=== PATIENT | male | born 1950 | race Caucasian/White ===

== ENCOUNTER 2017-09-04 15:31 | Emergency (ER) | payer OTHER ==
[~2017-09-04 15:31] MED LIST: ALPR.25 PO; AMBI5TAB PO; LACTTAB8 PO; LOSA25TA PO; METO1TAB43 PO; MOBI7.5T PO; OMEP20TA93 PO; TRAM50TA PO
[2017-09-04 16:48] VITALS: BP 115/68; PULSE 85; RESP 22; TEMP 99; O2SAT 96
[2017-09-04 19:11] VITALS: PULSE 84; RESP 20; O2SAT 96
[2017-09-04] MEDS ORDERED: METO1TAB43 PO (19:16)
[2017-09-04 19:20] VITALS: BP 114/77; PULSE 88; RESP 20; O2SAT 98
--- NOTE | 2017-09-04 19:23 | PD ---
HPI Chief Complaint: Cold / Flu Symptoms Time Seen by Provider: 19:03 Travel History International Travel<30 days: No Contact w/Intl Traveler<30days: No Traveled to known affect area: No History of Present Illness HPI Patient is a 67-year-old male coming in saying since Saturday which is 5 days ago sore throat congested upper airway felt his throat may be closing and then he's had a cough shortness of breath wakes up feeling short of breath however he reports he has anxiety so is not sure whether it is airway is the problem or his having anxiety while sleeping. He is on losartan and metoprolol for cardiac arrhythmia. He is not complaining of chest pain he is not complaining of nausea vomiting diarrhea negative patient's main complaint is coughing sore throat feeling weak and chills and short of breath. He has taken Mucinex over- the-counter without relief of his symptoms. He has a history of COPD however he is not on home nebs he is not on prednisone and he has not seen another doctor for this. [facility]. 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) Cardiovascular Problems: Yes (HTN, IRREGULAR HEART RATE) High Cholesterol: Yes COPD: Yes Diabetes: No GERD: Yes Hypertension: Yes Psychiatric: Yes (PTSD) Tetanus Vaccination: < 5 Years Influenza Vaccination: Yes PNEUMOCCOCAL Vaccine (Year): 2009 Past Surgical History Abdominal Surgery: Yes (HERNIA REPAIR) Eye Surgery: Yes (lasix) Other Surgery: Yes (SKIN CANCER REMOVAL FROM NOSE) Family History Family Myocardial Infarction: Yes Social History Alcohol Use: Yes Tobacco Use: No (quit 16 years ago) Substance Use: No Allergies-Medications (Allergen,Severity, Reaction): Coded Allergies: clindamycin (Unverified Allergy, Severe, EDEMA, 09/04/17) Reported Meds & Prescriptions Reported Meds & Active Scripts Active Levaquin (Levofloxacin) 750 Mg Tablet 750 Mg PO DAILY Atrovent HFA 12.9 GM Inh (Ipratropium [place]) 17 Mcg/Actuation Aer 2 Puff INH Q6HR PRN Guaifenesin AC Liq (Guaifenesin-Codeine Liq) 100-10 Mg/5 Ml Syrp 10 Ml PO Q4H PRN Reported Metoprolol Succinate ER 24 HR (Metoprolol Succinate) 100 Mg Tab 150 Mg PO DAILY Ambien (Zolpidem Tartrate) 5 Mg Tab 5 Mg PO HS PRN Xanax (Alprazolam) 0.25 Mg Tab 0.25 Mg PO Q8H PRN Mobic (Meloxicam) 7.5 Mg Tab 7.5 Mg PO DAILY Tramadol (Tramadol HCl) 50 Mg Tab 50 Mg PO Q8H PRN Omeprazole 20 Mg Tab 20 Mg PO DAILY Lactobacillus Acidophilus 1 Tab Tab 1 Tab PO BID Losartan (Losartan Potassium) 25 Mg Tab 25 Mg PO DAILY Review of Systems Except as stated in HPI: all other systems reviewed are Neg Physical Exam Narrative GENERAL: Awake alert nontoxic appearing no respiratory distress SKIN: Warm and dry. HEAD: Atraumatic. Normocephalic. EYES: Pupils equal and round. No scleral icterus. No injection or drainage. ENT: No nasal bleeding or discharge. Mucous membranes pink and moist. Posterior pharynx erythema but no exudate NECK: Trachea midline. No JVD. No submandibular node swelling no lymphadenopathy CARDIOVASCULAR: Regular rate and rhythm. RESPIRATORY: No accessory muscle use. Clear to auscultation. Breath sounds equal bilaterally. Lungs completely clear to auscultation in all arango GASTROINTESTINAL: Abdomen soft, non-tender, nondistended. Hepatic and splenic margins not palpable. MUSCULOSKELETAL: Extremities without clubbing, cyanosis, or edema. No obvious deformities. NEUROLOGICAL: Awake and alert. No obvious cranial nerve deficits. Motor grossly within normal limits. Five out of 5 muscle strength in the arms and legs. Normal speech. PSYCHIATRIC: Appropriate mood and affect; insight and judgment normal. Data Data Last Documented VS Vital Signs Date Time Temp Pulse Resp B/P (MAP) Pulse Ox O2 Delivery O2 Flow Rate FiO2 09/04/17 21:35 78 18 120/78 (92) 97 09/04/17 19:20 Room Air 09/04/17 16:48 99.0 Orders Orders Group A Rapid Strep Screen (09/04/17 19:17) Influenzae A/B Antigen (09/04/17 19:17) Chest, Pa & Lat (09/04/17 ) Ibuprofen (Motrin) (09/04/17 19:30) Guaifen-Cod 200-20 Mg/10ml Liq (Robituss (09/04/17 19:30) Ipratropium Neb (Atrovent Neb) (09/04/17 19:30) Strep Culture (Group A) (09/04/17 19:21) Ed Discharge Order (09/04/17 20:36) [facility] Medical Decision Making Medical Screen Exam Complete: Yes Emergency Medical Condition: Yes Differential Diagnosis Viral illness versus influenza versus strep pharyngitis versus other reactive airway versus allergy versus COPD exacerbation Narrative Course Chest x-ray is negative strep and flu swabs are sent and negative patient is treated with an Atrovent as well as cough syrup and a ibuprofen. Dx COPD levaquin PO and Atrovent and cough syrup with codeine 120 ml Diagnosis Primary Impression: Cough Additional Impression: COPD exacerbation Patient Instructions: Acute Cough (ED), COPD (Chronic Obstructive Pulmonary Disease) (ED), General Instructions Scripts Levofloxacin (Levaquin) 750 Mg Tablet 750 MG PO DAILY for Infection, #5 TAB 0 Refills Prov: Ron Grimaldo MD 09/04/17 Ipratropium HFA 12.9 GM Inh (Atrovent HFA 12.9 GM Inh) 17 Mcg/Actuation Aer 2 PUFF INH Q6HR Y for SHORTNESS OF BREATH, #1 INHALER 0 Refills Prov: Ron Grimaldo MD 09/04/17 Guaifenesin-Codeine Liq (Guaifenesin AC Liq) 100-10 Mg/5 Ml Syrp 10 ML PO Q4H Y for COUGH, #1 BOTTLE 0 Refills Prov: Ron Grimaldo MD 09/04/17 Ron Grimaldo MD Sep 04, 2017 19:23
[2017-09-04] MEDS ORDERED: RESP: IPRATROPIUM 0.5 MG/2.5 ML NEB NEB ONE (19:30)
[2017-09-04] MEDS ORDERED: IBUPROFEN 600 MG TAB PO ONE (19:30)
[2017-09-04] MEDS ORDERED: guaiFENesin/CODEINE SYRUP 200 MG/20 MG/10 ML CUP PO ONE (19:30)
--- NOTE | 2017-09-04 19:39 | RADRPT ---
EXAM DATE/TIME: 09/04/2017 19:21 [place] COMPARISON: No previous studies available for comparison. INDICATIONS : Chest pain and cough. MEDICAL HISTORY : None. SURGICAL HISTORY : None. ENCOUNTER: Initial ACUITY: 1 day PAIN SCORE: 4/10 LOCATION: Bilateral chest FINDINGS: PA and lateral views of the chest demonstrate the lungs to be symmetrically aerated without evidence of mass, infiltrate or effusion. The cardiomediastinal contours are unremarkable. Osseous structure s are intact. CONCLUSION: Normal examination. Ed Thorpe MD on September 04, 2017 at 19:36 Board Certified Radiologist. This report was verified electronically.
[2017-09-04] MEDS ORDERED: IPRA17I INH (20:03)
[2017-09-04] MEDS ORDERED: LEVA750T9 PO (20:03)
[2017-09-04] MEDS ORDERED: GUAISYP4 PO (20:03)
[2017-09-04 21:15] VITALS: RESP 18
[2017-09-04 21:35] VITALS: BP 120/78
== END 2017-09-04 23:19 | disposition home or self-care (01) ==
LOC: PHED 15:31
DX: R05 Cough (principal); J44.1 Chronic obstructive pulmonary disease with (acute) exacerbation; R06.02 Shortness of breath; I10 Essential (primary) hypertension
CPT/HCPCS: 71046; 87081; 87804; 87880; 94664; 99284; J7644